=== PATIENT | male | born 1970 | race Caucasian/White ===

== ENCOUNTER 2017-09-21 21:16 | Emergency (ER) | payer OTHER ==
[~2017-09-21] VITALS: Ht 175.3 cm; Wt 127.0 kg
[~2017-09-21 21:16] MED LIST: CIPRO500 MG PO; CIPROFLOXACIN500 MG PO; FLAGYL500 MG PO; IBUPROFEN600 MG PO; NORCO 5-325 TA1 EACH PO; NYQUIL D COLD295 ML PO
[2017-09-21] MEDS ORDERED: FLAGYL500 MG PO (23:44)
[2017-09-21] MEDS ORDERED: CIPRO500 MG PO (23:44)
== END 2017-09-22 | disposition home or self-care (01) ==
LOC: ED 21:16
DX: K57.92 Diverticulitis of intestine, part unspecified, without perforation or abscess without bleeding (principal); F17.200 Nicotine dependence, unspecified, uncomplicated
CPT/HCPCS: 74177; 80053; 81001; 83690; 85025; 99284; Q9967

== ENCOUNTER 2018-04-17 06:57 | Day surgery (SDC) | payer OTHER ==
[~2018-04-17] VITALS: Ht 177.8 cm; Wt 131.1 kg
--- NOTE | 2018-04-17 08:54 | NUR ---
04/17/18 0854 Sheets,Maite 0846 PT ARRIVED TO PACU ON 3L VIA NC, SOME SNORING NOTED. RESP EVEN AND UNLABORED. PT DENIES PAIN AND NAUSEA. PT ENCOURAGED TO PASS GAS/AIR. CBG 110. 0853 PT ASLEEP OFF AND ON AND WAKES TO VERBAL STIMULI. 0854 O2 REMOVED.
--- NOTE | 2018-04-18 08:42 | OR ---
[facility] [address] [place], [place] [address] Signed DATE OF OPERATION: 04/17/2018 SURGEON: Lorenzo Hilton MD PREOPERATIVE DIAGNOSES: 1. Mother with colonic polyps in her 50s. 2. Personal history of colonic hyperplastic polyps at age 43. 3. Diverticulosis. 4. Paternal uncle with colon cancer in his 50s. POSTOPERATIVE DIAGNOSES: 1. [id number] sigmoid diverticulosis. 2. Multiple hyperplastic appearing rectal polyps. 3. 4 mm polyps at 33 and 20 cm. 4. Minimal internal hemorrhoids. PROCEDURE PERFORMED: Colonoscopy with hot biopsy. ESTIMATED BLOOD LOSS: None. INDICATIONS: Kane is a 48-year-old obese gentleman who also has untreated hypertension. His blood pressures have been running in my office in here in the department 160s/101 to 117. He said he tried to treat it in the past, but it sounds like he was a little fatigued and maybe a little dizzy and so he just quit taking his blood pressure medications. We explained to Kane before he received any medications here for the endoscopy that he needs to follow up his primary care provider and have that addressed. In my office, I have given him pamphlets on the lower endoscopy. He understands the nature of the test along with the risks and benefits. He also understands the need for IV conscious sedation. He had expressed understanding and wished to proceed. He also told me that he has had several episodes of diverticulitis, but it has responded very quickly and thoroughly to the antibiotics. He also reminded me that his paternal uncle was diagnosed and of colon cancer in his 50s and that his mother had colonic polyps as well. PROCEDURE NOTE: Kane was taken into our endoscopy suite and placed in a left lateral decubitus position. He was given IV sedation with 10 mg of Versed and 200 mcg of fentanyl to Electronically Signed By: LORENZO HILTON MD 04/18/18 0842 PATIENT NAME: KANE YEBOAH II OPERATIVE REPORT DATE OF : 72 REPORT #: [id number] PHYSICIAN: LORENZO HILTON MD PCP: TODD TURK MD REPORT IS CONFIDENTIAL AND NOT TO BE RELEASED WITHOUT AUTHORIZATION [facility] [address], [place] [address] Signed cover the case. A digital rectal exam was performed and this was unremarkable. The adult colonoscope was introduced and advanced all around into the cecum under direct visualization camera without difficulty. His prep was good. The scope was slowly withdrawn. We took pictures throughout for photodocumentation. The above-mentioned polyps were easily removed with the help of hot biopsy forceps. He does have sigmoid diverticulosis. They are generally small to moderate in size, minimal to moderate in number, and scattered about. No evidence of any inflammatory changes currently. Once in the rectum, the scope had been retroflexed and he does have just some very minimal internal hemorrhoid tissue. After this, the gas was suctioned out and the colonoscope removed. Kane tolerated the procedure quite well. RECOMMENDATIONS: I will see Kane back in my office in 7 to 14 days to review his results. He will need to stay on the 5-year rotation. He needs to address his untreated hypertension with his primary care provider. Lorenzo Hilton MD ALB/MODL /[id number] cc: MD Lorenzo Jacob MD Copies: TODD TURK MD, ANDREW L MD ~ Electronically Signed By: LORENZO HILTON MD 04/18/18 0842 PATIENT NAME: KANE YEBOAH II OPERATIVE REPORT DATE OF : 72 REPORT #: [id number] PHYSICIAN: LORENZO HILTON MD PCP: TODD TURK MD REPORT IS CONFIDENTIAL AND NOT TO BE RELEASED WITHOUT AUTHORIZATION
== END 2018-04-17 09:28 | disposition home or self-care (01) ==
LOC: OPS 06:57 → DS 06:57 → OPS 08:15 → DS 08:15 → OPS 09:28
PROVIDERS: Colon & Rectal Surgery
PROC: 0DBE8ZZ Excision of Large Intestine, Via Natural or Artificial Opening Endoscopic (ICD-10-PCS; 2018-04-17)
PROC: 0DBP8ZZ Excision of Rectum, Via Natural or Artificial Opening Endoscopic (ICD-10-PCS; principal; 2018-04-17 08:15)
DX: Z12.11 Encounter for screening for malignant neoplasm of colon (principal); K63.5 Polyp of colon; K62.1 Rectal polyp; K57.30 Diverticulosis of large intestine without perforation or abscess without bleeding; K64.8 Other hemorrhoids; I10 Essential (primary) hypertension; R73.03 Prediabetes; Z86.010 Personal history of colon polyps; Z80.0 Family history of malignant neoplasm of digestive organs; Z83.71 Family history of colonic polyps; Z98.890 Other specified postprocedural states
CPT/HCPCS: 99153; G0500; J2250; J3010; J7120

== ENCOUNTER 2021-02-11 19:14 | Inpatient (IN) | payer BC, OTHER ==
[~2021-02-11] VITALS: Ht 177.8 cm; Wt 84.8 kg
[2021-02-11] MEDS ORDERED: ADULT ASPIRIN R81 MG PO (19:32)
[2021-02-11] MEDS ORDERED: LISINOPRIL10 MG PO (19:32)
[2021-02-11] MEDS ORDERED: METFORMIN HCL500 M1 PO (19:32)
[2021-02-11] MEDS ORDERED: LISINOPRIL-HCT1 EACH PO (19:38)
--- NOTE | 2021-02-11 21:50 | NUR ---
PT ARRIVES TO FLOOR VIA STRETCHER. ABLE TO STAND AND TRANSFER TO THE BED. ADMISSION PROCESS COMPLETE. MED ADMINISTERED. PT ORIENTED TO ROOM AND POC FOR THIS SHIFT. WHITE BOARD UDPATED. PT'S PRIMARY RN AT BEDSIDE THIS QUALITY ASSURANCE CALIBRATOR EXITS. CALL LIGHT IN REACH. PT AGREES TO USE FOR NEEDS.
--- NOTE | 2021-02-11 22:50 | NUR ---
pt admitted from ed, on 3L O2 NC, tele/cpox#[address], sats 92%. lungs with crackles t/o, no sob with exertion. voided prior to admission. instructed on room, procedures, proning information given verbally and written.O2 requirements, call light, voiding. ivf solution, Remdesivir, tessalon perles, robitussin and melatonin. stated understanding. is explained. iv site lac paten. coop with assessment and admission joe
--- NOTE | 2021-02-11 23:21 | NUR ---
resting. O2 3LNC in place, cpox#3, sats 93%. no distress, Remdesevir infusing w/o problems.
--- NOTE | 2021-02-12 02:57 | NUR ---
PT WALKING IN ROOM, SITTING IN RECLINER TOO, O2 3LNC IN PLACE, CPOX#3 93%, DENIES SOB, TOLERATING WELL. TOLERATING FLUIDS WELL, NO EMESIS. CONT ON AIRBORNE ISOLATION PRECAUTIONS
--- NOTE | 2021-02-12 05:28 | NUR ---
pt sitting edge of bed, o2 3l nc in place. cpox#[address] sats 92-95%, lungs with crackles t/o, IS at bedside, repeat demonstration done earlier. voiding dark yellow-orange urine, ivf infusing, no c/o adverse reaction to Remdesivir. tolerating fluids well. Proning information done and return demonstration done by pt. reinforce proning positioning. on Airborne isolation precautions
--- NOTE | 2021-02-12 06:47 | NUR ---
In bed, O2 3LNC, cpox #[address], sats 92%, it goes up to 96-98% when proning on his abd. IS at bedside. tolerating liquid well, no emesis. voiding qs. coop with assessment
--- NOTE | 2021-02-12 07:20 | NUR ---
THIS RN RECEIVED REPORT FROM MIGUEL ANGEL DAWKINS. PT GORDON MID 90S THIS AM ON CPOX
--- NOTE | 2021-02-12 08:30 | NUR ---
THIS RN IN PTS ROOM TO DO PTS MORNING MEDS. PT STATES THAT HE IS FEELING OKAY. HAD MORE OF AN APPETITE THIS AM. PT SITTING UP AT EDGE OF BED SATING 95% ON 3L. THIS RN CONTINUED EDUCATION ABOUT PRONING- PT STATES THAT HE HAS ALREADY BEEN STARTING TO DO THAT
--- NOTE | 2021-02-12 09:15 | NUR ---
THIS RN UPDATED PTS ABOUT STATUS. ALL QUESTIONS ANSWERED TO THE BEST OF THIS RNS ABILITY
--- NOTE | 2021-02-12 10:50 | NUR ---
PT PRONING. PT INDEPENDENT IN ROOM. CALL LIGHT WITHIN REACH, NO FURTHER NEEDS AT THIS TIME
--- NOTE | 2021-02-12 10:51 | NUR ---
MARIZA FREEMAN NOTIFIED OF VERY LITTLE OUTPUT AND INTAKE
[2021-02-12] MEDS ORDERED: ONDANSETRON ODT8 MG PO (11:01)
--- NOTE | 2021-02-12 12:02 | NUR ---
MED REC COMPLETE
--- NOTE | 2021-02-12 12:30 | NUR ---
THIS RN IN PTS ROOM TO GIVE PT 1 UNIT OF INSULIN. PT SITTING UP AT EDGE OF BED. PT STATES THAT HE HAS BEEN PRONING THIS MIDMORNING AND IS TOLERATING THIS WELL. PT HAS NO OTHER NOTED NEEDS AT THIS TIME.
--- NOTE | 2021-02-12 15:45 | NUR ---
THIS RN TO CHECK ON PT. PT APPEARS TO BE FULL PRONE POSITION AND SATING WELL AT 96%.
--- NOTE | 2021-02-12 17:00 | NUR ---
THIS RN IN PTS ROOM TO GET PTS BLOOD SUGAR. PT STATES THAT HE IS TOLERATING PRONING WELL AND NEEDS NOTHING FURTHER. PTS BS 141- PER PT REQUEST TO HOLD INSULIN
--- NOTE | 2021-02-12 18:30 | NUR ---
THIS RN UPDATED PTS AT THIS TIME.
--- NOTE | 2021-02-12 18:42 | NUR ---
PT SITTING UP ON EDGE OF BED. OCCASIONALLY COUGHS. PT LAUGHING AND SMILING. CALL LIGHT WITHIN REACH, NO FURTHER NEEDS AT THIS TIME
--- NOTE | 2021-02-12 21:12 | NUR ---
AMBULATING IN ROOM, ON 3L NC, CPOX#3, SASTS 93%, NO SOB WITH EXERTION, TOLERATING FLUIDS WELL, NO EMESIS, ABD NORMAL DISTENDEDN, HAD BM EARLIER IN AM, VOIDING QS DARK YELLOW-ORANGE URINE. IVF INFUSING/TOLERATING IV ABX WELL, USES CALL LIGHT. CBG 205 REQUIRED 3 UNITS SS INSULIN. COOPERASTIVE, ON AIRBORNE ISOLATION. PRONES SELF WHEN NEEDED
--- NOTE | 2021-02-13 00:50 | NUR ---
CPOX #3 91%, ON 3lnc, LAYING ON HIS LEFT SIDE, CALL LIGHT AND FLUIDS AT BEDSIDE, ON AIRBORNE PRECAUTIONS
--- NOTE | 2021-02-13 02:14 | NUR ---
LAYING ON HIS STOMACH, ON 3L NC, AWAKES EASILY, DENIES C/O PAIN. FRESH FLUIDS GIVEN, CONT ON AIRBORNE ISOLATION
--- NOTE | 2021-02-13 06:24 | NUR ---
Pt on 3lNC, cpox #[address], sats 90-96%. no sob. Lungs with crackles bilat. prones self in bed. occassional dry cough , sl patent, no c/o adverse reaction to Remdesivir. tolerating liquids well, voiding qs, had a bm this shift. ambulates in room, up to chair several times Cont on airborne isolation precautions
--- NOTE | 2021-02-13 08:06 | NUR ---
ADMINISTERED MORNING MEDS. ONLY REQUIRED ONE UNIT. LUNGS DIM, NO CRACKLES NOTED. ON 3LNC SATS 95%. STATES HE SLEPT WELL. EATING BREAKFAST.
--- NOTE | 2021-02-13 09:08 | NUR ---
Doctor is currently in the room. Patient is in chair. Patient refused a warm wash cloth this morning. Room was tidied up a little bit.
[2021-02-13] MEDS ORDERED: BENZONATATE100 MG PO (10:07)
[2021-02-13] MEDS ORDERED: DEXAMETHASONE6 MG PO (10:08)
--- NOTE | 2021-02-13 10:53 | NUR ---
Per , they would prefer NORIN for home 02. She is able to pick patient up at time of dc, questions answered regarding dc.
--- NOTE | 2021-02-13 11:39 | NUR ---
CHECKED ON PT AND TOLD HIM I HAD SPOKEN WITH HIS . WE ARE WAITING FOR O2 AUTH. HE IS ANXIOUS TO LEAVE AND DOES NOT WANT TO ORDER LUNCH.
== END 2021-02-13 13:40 | disposition home or self-care (01) | DRG 177 ==
LOC: ED 19:14 → MS 21:26
PROVIDERS: ADMIT Internal Medicine; ATTEND Internal Medicine
PROC: 3E0333Z Introduction of Anti-inflammatory into Peripheral Vein, Percutaneous Approach (ICD-10-PCS; principal; 2021-02-11)
PROC: XW033E5 Introduction of Remdesivir Anti-infective into Peripheral Vein, Percutaneous Approach, New Technology Group 5 (ICD-10-PCS; 2021-02-11)
PROC: 8E0ZXY6 Isolation (ICD-10-PCS; 2021-02-11)
DX: U07.1 COVID-19 (principal); J12.82 Pneumonia due to coronavirus disease 2019; J96.01 Acute respiratory failure with hypoxia; I10 Essential (primary) hypertension; E11.9 Type 2 diabetes mellitus without complications; E78.1 Pure hyperglyceridemia; E86.1 Hypovolemia; Z87.891 Personal history of nicotine dependence; Z79.82 Long term (current) use of aspirin; Z79.84 Long term (current) use of oral hypoglycemic drugs
CPT/HCPCS: 71045; 80053; 83880; 85025; 94667; 94668; 94760; 94761; 96374; 99284-25; A9270; J1100; J1650; J1815; J3480; J7050

== ENCOUNTER 2023-02-28 18:38 | Emergency (ER) | payer BC, OTHER ==
[~2023-02-28] VITALS: Ht 177.8 cm; Wt 84.4 kg
[~2023-02-28 18:38] MED LIST changes: +ADULT ASPIRIN R81 MG PO; +BENZONATATE100 MG PO; +DEXAMETHASONE6 MG PO; +LISINOPRIL-HCT1 EACH PO; +LISINOPRIL10 MG PO; +METFORMIN HCL500 M1 PO; +ONDANSETRON ODT8 MG PO
[2023-02-28] MEDS ORDERED: ZITHROMAX250 MG PO (19:08)
[2023-02-28] MEDS ORDERED: PREDNISONE20 MG PO (19:08)
[2023-02-28 19:24] VITALS: BP 141/96
== END 2023-02-28 19:27 | disposition home or self-care (01) ==
LOC: ED 18:38
DX: G51.0 Bell's palsy (principal); Z87.891 Personal history of nicotine dependence; Z79.899 Other long term (current) drug therapy
CPT/HCPCS: 99284; J7512

== ENCOUNTER 2024-04-28 07:04 | Day surgery (SDC) | payer BC, OTHER ==
[~2024-04-28] VITALS: Ht 177.8 cm; Wt 118.1 kg
[~2024-04-28 07:04] MED LIST changes: +IBLOOD GLUCOSE TEST STRIP 1 EA TEST VI PRN; +LACTATED RINGER'S 1,000 ML IV SCH; +LIDOCAINE HCL 1% 5 ML SDV INJ ONE; +MIDAZOLAM HCL 5 MG/5 ML VIAL IV PRN; +PREDNISONE20 MG PO; +ZITHROMAX250 MG PO; +fentaNYL citrate 100 MCG/2 ML VIAL IV PRN
[2024-04-28 07:18] VITALS: BP 135/86
[2024-04-28] MEDS ORDERED: LISINOPRIL20 MG PO (07:23)
[2024-04-28] MEDS ORDERED: OZEMPIC0.25 MG/02 SQ (07:23)
--- NOTE | 2024-04-28 07:37 | NUR ---
PT NOT AVAILABLE FOR VISIT. PROVIDED PRAYER.
[2024-04-28] MEDS ORDERED: MIDAZOLAM HCL 5 MG/5 ML VIAL ONE (07:45)
[2024-04-28] MEDS ORDERED: fentaNYL citrate 100 MCG/2 ML VIAL ONE (07:46)
--- NOTE | 2024-04-28 08:31 | NUR ---
04/28/24 0831 Richelle Nichole PATIENT ARRIES IN PACU ALERT AND TALKING WITH ME. HE RESTS QUIETLY, WITH HIS EYES CLOSED WHEN UNSTIMULATED. HIS RESPIRATIONS ARE EVEN AND UNLABORED.
[2024-04-28 09:01] VITALS: BP 119/86
--- NOTE | 2024-04-29 08:44 | OR ---
[facility] [address] [place], [place] [address] Signed DATE OF OPERATION: 04/28/2024 SURGEON: Lorenzo Hilton MD PREOPERATIVE DIAGNOSES: 1. Personal history of hyperplastic polyps in 2013 and in 2019 at age 42 and 48. 2. Diverticulosis. 3. Internal hemorrhoids. 4. Mother with colonic polyps in her 50s. 5. A paternal uncle #1 with colon cancer in his 50s. 6. A paternal uncle with colon cancer in his 50s or 60s. 7. A paternal uncle with prostate cancer in his 50s. POSTOPERATIVE DIAGNOSES: 1. A 5 mm polyp at 60 cm in left colon. 2. Minimal sigmoid diverticulosis. 3. Minimal internal hemorrhoids. PROCEDURE: Colonoscopy with hot biopsy. ESTIMATED BLOOD LOSS: None. INDICATIONS: Kane is a 54-year-old obese diabetic gentleman, asked to see me for a followup colonoscopy. He said he has no lower GI complaints currently. I helped him in 2013 at the age of 42, and again in 2019 at the age of 48. He has done well with versed and fentanyl both times; however, he did take 10 mg of Versed and 200 mcg of fentanyl because of the need to remove his hyperplastic polyps. He is known to have a little diverticulosis along with his internal hemorrhoids. We reviewed today his past history. He told me he has his mother had colonic polyps in her 50s, and he had a paternal uncle had colon cancer in his 50s, second paternal uncle had colon cancer in his 50s or early 60s, and the third paternal uncle had prostate cancer in his 50s. He said his father has never had a colonoscopy. In the office, I gave Kane and his a pamphlet on colonoscopy. We had reviewed the nature of the test. There is risk including, but not limited to gas bloating, crampy abdominal pain, bleeding, perforation requiring surgery, and missed diagnosis. We also reviewed the written instructions for the bowel prep line by line. We had him hold aspirin 2 days prior to the procedure. He held his Ozempic one week prior to the procedure. We had him hold the metformin in the morning until Electronically Signed By: LORENZO HILTON MD 04/29/24 0844 PATIENT NAME: KANE YEBOAH II OPERATIVE REPORT DATE OF : 72 REPORT #: [id number] PHYSICIAN: LORENZO HILTON MD PCP: ERIN PACHECO REPORT IS CONFIDENTIAL AND NOT TO BE RELEASED WITHOUT AUTHORIZATION [facility] [address] [place] [id number] Signed after the test was completed. His blood sugar this morning was 144. He had expressed understanding and wished to proceed. He understands an adult person has to take him home afterwards that is almost always his . He had expressed understanding and wished to proceed. DESCRIPTION OF PROCEDURE: Kane was taken into our endoscopy suite, placed in the left lateral decubitus position. He is always a little anxious for his colonoscopies. We gave him a total of 7 mg of Versed and 150 mcg of fentanyl. He was just a little awake as we got down into the cecum itself. Otherwise, he did quite well. A digital rectal exam was performed. He had a little bit external hemorrhoid on the right lateral position. He had good sphincter tone. There were no masses. The adult colonoscope had been introduced, and then advanced all the way around into the cecum under direct visualization as described above. His prep was quite good. We could easily see the appendiceal orifice and ileocecal valve. The scope was then slowly withdrawn. He did have a single 5 mm polyp at 68 cm in the left colon. It was easily removed and destroyed completely with the hot biopsy forceps. He has just a little diverticula in the left and sigmoid colon. They were small in size, few in number and scattered about. The rectum was unremarkable. Upon retroflexion of scope, he has minimal internal hemorrhoid columns. After this, the gas was suctioned out and colonoscope removed. Kane tolerated the procedure quite well. RECOMMENDATIONS: Kane can follow up in my office in 7 to 14 days to review his biopsy results. It looks like he will stay on the five year plan. Lorenzo Hilton MD ALB/MODL /[id number] cc: Patient Chart Erin Pacheco, Nurse Practitioner Lorenzo Hilton MD Electronically Signed By: LORENZO HILTON MD 04/29/24 0844 PATIENT NAME: KANE YEBOAH II OPERATIVE REPORT DATE OF : 72 REPORT #: [id number] PHYSICIAN: LORENZO HILTON MD PCP: ERIN PACHECO-Joleen REPORT IS CONFIDENTIAL AND NOT TO BE RELEASED WITHOUT AUTHORIZATION [address] [address] Signed Copies: LORENZO HILTON MD ~ Electronically Signed By: LORENZO HILTON MD 04/29/24 0844 PATIENT NAME: EDILIA RAMOSKANEJAXON SANCHEZ OPERATIVE REPORT DATE OF : 72 REPORT #: [id number] PHYSICIAN: LORENZO HILTON MD PCP: ERIN PACHECO REPORT IS CONFIDENTIAL AND NOT TO BE RELEASED WITHOUT AUTHORIZATION
--- NOTE | 2024-04-29 16:36 | PATH ---
[facility] [address] [facility] [place], [place] [address] Signed SPECIMEN(S): A DESCENDING POLYP, 68 CM SPECIMEN SOURCE: A. DESCENDING POLYP, 68 CM CLINICAL HISTORY: History of colon polyps, history of diverticulosis, family history of colon cancer FINAL PATHOLOGIC DIAGNOSIS: Descending polyp, 68 cm: - Tubular adenoma (one fragment). JVR:zahra MICROSCOPIC EXAMINATION: Histologic sections of all submitted blocks are examined by light microscopy. These findings, together with the gross examination, support the pathologic diagnosis. GROSS DESCRIPTION: The specimen, labeled and designated "Sherrill descending polyp, 68 cm," is received in formalin and consists of one magana soft tissue fragment, 0.3 cm. Entirely submitted in (A1). VB (under the direct supervision of a pathologist) The Gross Description was prepared using a voice recognition system. The report was reviewed for accuracy; however, sound-alike word errors, addition and/or deletions may occur. If there is any question about this report, please contact Client Services. PERFORMING LABORATORY: Technical component was performed by [facility], [address] [place] [id number] (CLIA# [id number]). Professional interpretation was performed by [email or web address], [address] [place] [phone] (CLIA#: [id number]). Diagnostician: Brennen Chung MD Pathologist Electronically Signed 04/29/2024 Copies: PATIENT NAME: CRIS YEBOAH II PATHOLOGY DATE OF : 72 REPORT #: [id number] PHYSICIAN: YIMI PATHOLOGY PCP: LUCIE VIVAR REPORT IS CONFIDENTIAL AND NOT TO BE RELEASED WITHOUT AUTHORIZATION [address] [address] Signed ~ PATIENT NAME: CRIS YEBOAH II PATHOLOGY DATE OF : 72 REPORT #: [id number] PHYSICIAN: YIMI MCKEON PCP: LUCIE VIVAR REPORT IS CONFIDENTIAL AND NOT TO BE RELEASED WITHOUT AUTHORIZATION
== END 2024-04-28 09:09 | disposition home or self-care (01) ==
LOC: DS 07:04
PROVIDERS: ATTEND Colon & Rectal Surgery
PROC: 0DBG8ZX Excision of Left Large Intestine, Via Natural or Artificial Opening Endoscopic, Diagnostic (ICD-10-PCS; principal; 2024-04-28 08:15)
DX: Z12.11 Encounter for screening for malignant neoplasm of colon (principal); D12.4 Benign neoplasm of descending colon; K64.8 Other hemorrhoids; K57.30 Diverticulosis of large intestine without perforation or abscess without bleeding; E11.9 Type 2 diabetes mellitus without complications; I10 Essential (primary) hypertension; E78.2 Mixed hyperlipidemia; E66.9 Obesity, unspecified; Z68.37 Body mass index [BMI] 37.0-37.9, adult; Z86.0102 Personal history of hyperplastic colon polyps; Z79.84 Long term (current) use of oral hypoglycemic drugs; Z79.82 Long term (current) use of aspirin; Z79.899 Other long term (current) drug therapy; Z80.0 Family history of malignant neoplasm of digestive organs
CPT/HCPCS: 99153; G0500; J2250; J3010; J7121